=== PATIENT | female | born 1995 | race Hispanic/Latino ===

== ENCOUNTER 2016-09-06 11:09 | Emergency (ER) | payer SELFPAY ==
[~2016-09-06] VITALS: Ht 154.9 cm; Wt 75.5 kg
[2016-09-06 13:06] LABS: HEMATOCRIT 37.6 % (36.0-46.0); MCH 28.5 PG (29.0-34.0); MCHC 32.2 G/DL (30.0-36.0); MCV 88.7 FL (83-99); PLATELET COUNT 196 K/uL (156-360); RBC DIS.WIDTH-SD 45.2 % (39-53); RED BLOOD COUNT 4.24 M/uL (3.80-5.20); WHITE BLOOD COUNT 6.3 K/uL (4.1-10.2)
[2016-09-06 13:13] LABS: CHLORIDE 103 mEq/L (99-109); POTASSIUM 3.9 mEq/L (3.7-5.4); SODIUM 140 mEq/L (136-147)
[2016-09-06 13:14] LABS: GLUCOSE 111 mg/dL (70-99)
[2016-09-06 13:16] LABS: ANION GAP 11 MEQ/L (2-14)
[2016-09-06 13:18] LABS: GFR ESTIMATE (CALCULATED) > 59 mL/min/
[2016-09-06 13:19] LABS: TROP-I INTERPRETATION NEGATIVE; TROPONIN-I < 0.01 ng/mL (0.0-0.30)
[2016-09-06 13:19] LABS: UREA NITROGEN (BUN) 9 mg/dL (9-23)
[2016-09-06 13:44] LABS: D-DIMER ELISA 0.36 mg/L FEU (< 0.57)
[2016-09-06 15:13] LABS: TROP-I INTERPRETATION NEGATIVE; TROPONIN-I < 0.01 ng/mL (0.0-0.30)
[2016-09-06 16:23] VITALS: BP 109/65
== END 2016-09-06 16:50 | disposition home or self-care (01) ==
LOC: EME 11:09
PROVIDERS: Emergency Medicine
DX: R07.89 Other chest pain (principal)
CPT/HCPCS: 71020; 80048; 84484; 85027; 85379; 93005; 99281; 99285; J1885